=== PATIENT | male | born 1995 | race Hispanic/Latino ===

== ENCOUNTER 2018-12-12 17:04 | Emergency (ER) | payer OTHER | END 2018-12-12 18:08 | disposition home or self-care (01) | LOC: EDH 17:04 | DX: B34.9 Viral infection, unspecified (principal); Z72.0 Tobacco use | CPT/HCPCS: 99281 ==

== ENCOUNTER 2019-02-23 08:40 | Emergency (ER) | payer OTHER ==
[2019-02-23] MEDS ORDERED: ACETAMINOPHEN EXTRA STRENGTH 500 MG TABLET ONE (09:24)
== END 2019-02-23 09:36 | disposition home or self-care (01) ==
LOC: EDH 08:40
DX: M54.6 Pain in thoracic spine (principal); F41.9 Anxiety disorder, unspecified; Z72.0 Tobacco use; V49.49XA Driver injured in collision with other motor vehicles in traffic accident, initial encounter; Y93.89 Activity, other specified; Y92.89 Other specified places as the place of occurrence of the external cause; Y99.8 Other external cause status

== ENCOUNTER 2019-04-09 21:00 | Emergency (ER) | payer OTHER | END 2019-04-09 22:40 | disposition home or self-care (01) | LOC: EDH 21:00 | DX: S60.221A Contusion of right hand, initial encounter (principal); Z72.0 Tobacco use; W23.0XXA Caught, crushed, jammed, or pinched between moving objects, initial encounter; Y93.89 Activity, other specified; Y92.481 Parking lot as the place of occurrence of the external cause; Y99.8 Other external cause status | CPT/HCPCS: 73130 ==

== ENCOUNTER 2019-10-07 19:45 | Emergency (ER) | payer OTHER ==
[2019-10-07 20:34] LABS: APPEARANCE,URINE Clear (CLEAR); BILIRUBIN,URINE Negative (NEGATIVE); COLOR,URINE Yellow (YELLOW); GLUCOSE, URINE (UA) Negative (NEGATIVE); KETONES,URINE Negative (NEGATIVE); LEUKOCYTE ESTERASE ,URINE Small (NEGATIVE); NITRATE,URINE Negative (NEGATIVE); OCCULT BLOOD,URINE Negative (NEGATIVE); PROTEIN,URINE Negative (NEGATIVE)
[2019-10-07 20:42] LABS: AMPHET/METH SCREEN,URINE NEGATIVE (NEGATIVE); BARBITURATE SCREEN, URINE NEGATIVE (NEGATIVE); BENZODIAZEPINES SCREEN,URINE NEGATIVE (NEGATIVE); CANNABINOID SCREEN,URINE NEGATIVE (NEGATIVE); COCAINE SCREEN,URINE NEGATIVE (NEGATIVE); OPIATE SCREEN,URINE NEGATIVE (NEGATIVE); PHENCYCLIDINE SCREEN,URINE NEGATIVE (NEGATIVE)
[2019-10-07 20:44] LABS: RBC,URINE 0-1 /HPF (0-1)
[2019-10-07 20:45] LABS: BASOPHILS % (AUTO) 0.3 % (0.0-5.0); EOSINOPHILS % (AUTO) 0.2 % (0.0-8.0); HEMATOCRIT 42.6 % (42-54); LYMPHOCYTES % (AUTO) 18.6 % (21.0-51.0); MEAN CORPUSCULAR HEMOGLOBIN 30.1 pg (27.0-33.0); MEAN CORPUSCULAR HGB CONC 33.1 g/dL (32.0-36.0); MEAN CORPUSCULAR VOLUME 90.8 fL (79-99); MONOCYTES % (AUTO) 7.2 % (3.0-13.0); NEUTROPHILS % (AUTO) 73.4 % (40.0-77.0); PLATELET COUNT (AUTO) 248 K/uL (130-400); RED BLOOD CELL COUNT(AUTO) 4.69 MIL/uL (4.50-6.20); RED CELL DISTRIBUTION WIDTH 12.5 % (11.0-15.5); WHITE BLOOD COUNT (AUTO) 10.7 K/uL (4.8-10.8)
[2019-10-07 20:45] LABS: BACTERIA,URINE Rare /HPF (None Seen); MUCUS,URINE Rare LPF (None Seen); SQUAMOUS EPITHELIAL CELL,UR Rare /HPF (0-2)
[2019-10-07 20:57] LABS: CREATININE 0.8 mg/dL (0.5-1.5); POTASSIUM 3.8 mmol/L (3.5-5.1)
[2019-10-07 20:58] LABS: INR 0.98 (0.85-1.15); PARTIAL THROMBOPLASTIN TIME 26.6 SEC (26.3-35.5); PROTHROMBIN TIME 10.3 SEC (9.6-11.6)
[2019-10-07 21:02] LABS: BILIRUBIN,TOTAL 0.2 mg/dL (0.2-1.0); TOTAL PROTEIN, SERUM 7.3 g/dL (6.0-8.3)
[2019-10-07] MEDS ORDERED: LIDOCAINE HCL-MPF 1% 2ML VIAL ONE (22:14)
[2019-10-07] MEDS ORDERED: CEFTRIAXONE SODIUM 500 MG VIAL ONE (22:14)
[2019-10-07] MEDS ORDERED: AZITHROMYCIN 250 MG TABLET PO ONE (22:15)
[2019-10-07] MEDS ORDERED: LEVOFLOXACIN 500 MG TABLET ONE (22:15)
[2019-10-07] MEDS ORDERED: ONDANSETRON ODT 4 MG TAB ONE (22:53)
== END 2019-10-07 23:01 | disposition home or self-care (01) ==
LOC: EDH 19:45
DX: N39.0 Urinary tract infection, site not specified (principal); R55 Syncope and collapse; R51 Headache; R11.2 Nausea with vomiting, unspecified; R19.7 Diarrhea, unspecified
CPT/HCPCS: 36415; 70450; 80053; 80305; 81001; 82550; 85025; 85610; 85730; 87088; 93005; 96372; 99285; J0696; J3490